=== PATIENT | male | born 1965 | race Caucasian/White ===

== ENCOUNTER 2016-12-10 20:27 | Inpatient (IN) | payer MEDICAID ==
[~2016-12-10] VITALS: Ht 177.8 cm; Wt 90.7 kg
--- NOTE | 2016-12-10 20:27 | NUR ---
Patient was BIBA at this time.
[2016-12-10 20:33] VITALS: BP 117/81
--- NOTE | 2016-12-10 20:37 | NUR ---
Patient taken to bed 06 via gurney per EMS.
--- NOTE | 2016-12-10 20:53 | NUR ---
51Y M BIBA C/O GENERAL WEAKNESS X 1 DAY; PT STATES HE HAD A STROKE EARLIER TODAY. NEURO TEST NORMAL, ALERT AND ORIENTED X 4. PT STATES TO BE AN ALCOHOLIC, AND STATES LAST DRINK WAS AT 1100 AM. ON MONITOR, VSS. NO S/S OF DISTRESS NOTED ER MD MADE AWARE. HX: BONE MARROW CANCER BS: [id number] NKA
[2016-12-10] MEDS ORDERED: THIAMINE 200 MG/2 ML VIAL IV ONE (21:15)
[2016-12-10] MEDS ORDERED: NACL 0.9% 2,000 ML IV ONE (21:15)
[2016-12-10] MEDS ORDERED: FOLIC ACID 5 MG/ML SYR ONE (21:23)
[2016-12-10] MEDS ORDERED: FOLIC ACID 5 MG/ML SYR IM ONE (21:55)
--- NOTE | 2016-12-10 22:29 | NUR ---
Patient back from CT via wheelchair per tech.
[2016-12-10] MEDS ORDERED: ASPIRIN 81 MG TAB.CHEW PO ONE (23:45)
[2016-12-11] VITALS (8 sets, daily range): BP systolic 122–152; BP diastolic 69–100
[2016-12-11] MEDS ORDERED: ACETAMINOPHEN 325 MG TAB PO PRN (00:25)
[2016-12-11] MEDS: NACL 0.9% 1,000 ML IV SCH ×4 (00:25→22:14)
[2016-12-11] MEDS ORDERED: HYDROcodone/APAP 5/325 MG 1 TAB TAB PO PRN (00:25)
[2016-12-11] MEDS ORDERED: ONDANSETRON 4 MG/2 ML VIAL IVP PRN (00:25)
[2016-12-11] MEDS ORDERED: LORazepam 2 MG/ML VIAL IVP PRN ×2 (00:40→09:40)
[2016-12-11] MEDS ORDERED: THIAMINE 200 MG/2 ML VIAL IM ONE (00:40)
--- NOTE | 2016-12-11 00:42 | NUR ---
Patient will be admitted to care of [facility]. Admited to TELEMETRY. Will go to room 111A. Belongings list completed. Report to NILSA CESAR.
[2016-12-11] MEDS ORDERED: ASPIRIN 81 MG TAB.CHEW PO ONE (00:45)
--- NOTE | 2016-12-11 00:58 | NUR ---
PT TRASFERRED TO TELEMETRY ROOM 111A, BY RN AND EMT VIA JEANETTE, NO S/S OF DISTRESS NOTED ON TRASFER.
--- NOTE | 2016-12-11 01:01 | NUR ---
RECEIVED FROM ER PER JOSEFINA . WALKED FROM OUTSIDE OF ROOM TO BED. ROM X 4. DENIES PAIN AT THIS TIME. CLEAR SPEECH. NO SOB. TELEMETRY MONITORING. PT. IS ABLE TO VERBALIZE NEEDS WELL. SMELLS ALCOHOL. DX. OF NEAR SYNCOPE, GENERAL WEAKNESS AND ETOH DEPENDENT. SKIN INTACT. IVF TO RAC#20. GOOD BLOOD RETURN. ORIENTED TO CALL LIGHT FOR HELP AND IF IN PAIN AND ORIENTED TO ROOM. BED ALARM ON .
--- NOTE | 2016-12-11 02:15 | NUR ---
RE-CHECKED PT. WITH CHARGE NURSE. NOTED WITH SMALL DRY SCABS TO LOWER EXTREMITIES. 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 PT. ABLE TO TALK MORE AT THIS TIME AND ABLE TO RE-CALL HISTORY. TELEMETRY MONITORING.
--- NOTE | 2016-12-11 02:57 | NUR ---
PROVIDED WITH SANDWICH RT STATED HE IS VERY HUNGRY. REQUESTED FOR ATIVAN RT "I FEEL JITTERY". A/O X 4.
--- NOTE | 2016-12-11 03:00 | NUR ---
CALLED ER NURSE WHO GAVE REPORT ABOUT PT. AND INFORMED HER THAT PT'S PLATELET IS HIGH AND PER PT. HE IS TAKING HYDROXYUREA. 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 WHO ADMITTED PT IN ER KNOWS ABOUT IT AND THAT HE HAS INFORMED MD IN CHARGE OF HIM . MADE CHARGE NURSE AWARE OF STATUS OF PT. BILATERAL SEQUENTIALS IN PLACE .
--- NOTE | 2016-12-11 07:50 | NUR ---
ENDORSED TO THE NEXT RN FOR CONTINUITY OF CARE. PT. AWAKE AND ALERT. NO COMPLAINTS DONE.
--- NOTE | 2016-12-11 07:51 | NUR ---
RECEIVED PT IN BED. ASLEEP, AROUSABLE TO VOICE. ALERT ORIENTEDX4. NO SOB NOTED. DENIES ANY PAIN OR DISCOMFORT AT THIS TIME. IV ON RIGHT AC NOT FLUSHING WELL SOME SWELLING NOTED. REINSERTED IV ON LEFT HAND G22, PATENT, INTACT. PT AMBULATORY. SKIN INTACT. DENIES ANY PAIN ON BOWEL OR BLADDER ELIMINATION AT THIS TIME. CONNECTED PT TO SCD. SAFETY PRECAUTION IN PLACE. CALL LIGHT WITHIN REACH. DR. ADAME WAS MAKING ROUNDS MADE AWARE OF PLATELET LEVEL OF 1267.
[2016-12-11] MEDS: FOLIC ACID 1 MG TAB PO SCH (08:56)
[2016-12-11] MEDS: DOCUSATE SODIUM 100 MG GELCAP PO SCH (08:56)
[2016-12-11] MEDS: MULTIVITAMIN 1 TAB PO SCH (08:56)
[2016-12-11] MEDS: THIAMINE 100 MG TAB PO SCH (08:56)
[2016-12-11] MEDS ORDERED: FOLIC ACID 1 MG TAB PO SCH (09:00)
[2016-12-11] MEDS ORDERED: ECOTRIN 81 MG TABEC PO SCH (09:00)
--- NOTE | 2016-12-11 09:44 | NUR ---
PATIENT HAS BEEN SCREENED AND CATEGORIZED MODERATE NUTRITION RISK. PATIENT WILL BE SEEN WITHIN 3-5 DAYS OF ADMISSION. 12/13/16-12/15/[address]
[2016-12-11] MEDS ORDERED: MAGNESIUM OXIDE 400 MG TAB PO SCH (09:48)
[2016-12-11] MEDS ORDERED: LORazepam 1 MG TAB PO SCH (09:54)
[2016-12-11] MEDS ORDERED: HYDROXYUREA 500 MG CAP PO SCH ×2 (10:25→10:52)
[2016-12-11] MEDS: LORazepam 1 MG TAB PO SCH ×2 (13:00→17:42)
--- NOTE | 2016-12-11 13:00 | NUR ---
RECEIVED A CALL FROM THE PHARMACY NAMED [facility]. SHE SAID THAT THE DRUG RECON WASN'T DONE. WENT TO PT. AND ASKED PT FOR THE MEDS HE TAKES AT HOME. OBTAINED LIST. BROUGHT TO DR. BO, AND MADE ORDERS AND CARRIED OUT.
[2016-12-11] MEDS ORDERED: MAG SULF 2000 MG/WATER PREMIX 50 ML IV ONE (14:15)
[2016-12-11] MEDS ORDERED: NICOTINE TRANSD SYS 21 MG/24 HR PATCH TD SCH (14:27)
--- NOTE | 2016-12-11 14:45 | NUR ---
faxed review to [facility] AT [phone] PHONE NUMBER [facility] [phone]
[2016-12-11] MEDS ORDERED: LISINOPRIL 5 MG TAB PO SCH (17:00)
--- NOTE | 2016-12-11 17:00 | NUR ---
[facility] SPOKE WITH DORIS RAZO MD REQUEST FOR MEDICAL RECORD OF PT FROM 08/2016 TO 09/2016 TO [facility]. ASKED FOR THEIR FAX NO. [phone]. FILLED OUT DISCLOSURE OF HEALTH INFORMATION FORM WITH PT. EXPLAINED TO PT THE PURPOSE OF THE FORM AND HIS PRIVACY RIGHTS. PT VERBALIZED UNDERSTANDING. AND PT SIGNED THE CONSENT.
--- NOTE | 2016-12-11 17:42 | NUR ---
DUE ORDERED ATIVAN 1MG NOT GIVEN AT THIS TIME DUE TO CAUSING PT TO BE SUPER SLEEPY. AWAKEN PT. ALERT ORIENTEDX4. NO NOTED SHAKINESS NOTED AT THIS TIME. DINNER SERVED. REMINDED PT THAT HE HAS AN ORDER FOR ATIVAN PRN IF HE WILL NEED IT FOR LATER. KEPT CLEAN, DRY AND COMFORTABLE.
--- NOTE | 2016-12-11 18:04 | NUR ---
FAXED REQUEST FOR MED RECORDS TO [facility] FAX NUMBER [phone]. CONFIRMATION PAPER RECEIVED AND FILED TOGETHER WITH ORIGINAL COPY TO CHART. GAVE COPY TO PT.
--- NOTE | 2016-12-11 19:34 | NUR ---
PT KEPT CLEAN, DRY AND COMFORTABLE, NEEDS ATTENDED, ENDORSED TO NEXT SHIFT FOR CONTINUITY OF CARE.
--- NOTE | 2016-12-11 19:35 | NUR ---
RECEIVED FROM AM RN IN BED SLEEPING. WAKES UP EASILY WHEN TOUCHED. NO COMPLAINTS OF PAIN AT THIS TIME. PT. ABLE TO VERBALIZE SIMPLE NEEDS. TELEMETRY MONITORING. DENIES PAIN AT THIS TIME. CARE PLANS FOR THE NIGHT DISCUSSED WITH HIM. ENCOURAGED TO USE CALL LIGHT FOR ANY NEEDS HE MAY HAVE AND IF IN PAIN. BED ALARM ON. PT. A/O X 4. ROM X 4. AFEBRILE. ROOM AIR AND 02 SAT IS 97%.
[2016-12-11] MEDS ORDERED: SIMVASTATIN 10 MG TAB PO SCH (21:00)
[2016-12-11] MEDS: ATORVASTATIN 80 MG TAB PO SCH (22:08)
[2016-12-11] MEDS: COLCHICINE 0.6 MG TAB PO SCH (22:09)
--- NOTE | 2016-12-11 22:16 | NUR ---
PT. SLEEPING AT THIS TIME. WOKE UP EASILY WHEN MEDICATED WITH P.O. MEDICATIONS FOR 2100. DENIES PAIN AT THIS TIME.CALL LIGHT WITH IN REACH. USES IT FOR HELP OR ANY NEEDS. VERBALIZES WELL.
--- NOTE | 2016-12-12 | NUR ---
RECEIVED PT IN STABLE CONDITION FROM [facility] FOR CONTINUITY OF CARE. AWAKE,ALERT AND ORIENTED X4. WITH NO C/O ANY DISCOMFORT NOR PAIN NOTED. CALL LIGHT PLACED WITH EASY REACH. INSTRUCTED TO CALL IF NEED ASSISTANCE. WILL CONTINUE TO MONITOR.
--- NOTE | 2016-12-12 | NUR ---
ENDORSED TO ANOTHER RN FOR CONTINUITY OF CARE. SLEEPING. AROUSABLE. NO COMPLAINTS AT THIS TIME. TELEMETRY MONITORING.
[2016-12-12 00:06] VITALS: BP 117/80
[2016-12-12] MEDS: LORazepam 1 MG TAB PO SCH ×4 (00:10→17:37)
--- NOTE | 2016-12-12 02:00 | NUR ---
SLEEPING AT THIS TIME. NO S/S OF ANY PAIN NOTED.
[2016-12-12 04:35] VITALS: BP 111/75
[2016-12-12] MEDS: NACL 0.9% 1,000 ML IV SCH ×3 (07:13→23:36)
--- NOTE | 2016-12-12 07:20 | NUR ---
RECEIVED REPORT FROM NIGHT NURSE, PT IS AAOX4, ON ROOM AIR, IV TO LEFT HAND INFUSING WELL, SKIN INTACT, INITIAL ASSESSMENT COMPLETED, REVIEWED PLAN OF CARE WITH PT, PT VERBALIZED UNDERSTANDING, ALL SAFETY/FALL PRECAUTIONS MET. CALL LIGHT WITHIN REACH, WILL CONTINUE TO MONITOR.
--- NOTE | 2016-12-12 07:20 | NUR ---
ENDORSED PT IN STABLE CONDITION TO AM NURSE.
[2016-12-12 08:00] VITALS: BP 118/77
[2016-12-12] MEDS: LISINOPRIL 5 MG TAB PO SCH (09:00)
[2016-12-12] MEDS ORDERED: HYDROXYUREA 500 MG CAP PO SCH (09:00)
[2016-12-12] MEDS: THIAMINE 100 MG TAB PO SCH (09:54)
[2016-12-12] MEDS: FOLIC ACID 1 MG TAB PO SCH (09:54)
[2016-12-12] MEDS: MULTIVITAMIN 1 TAB PO SCH (09:54)
[2016-12-12] MEDS: ASPIRIN 325 MG TABEC PO SCH (09:54)
[2016-12-12] MEDS: DOCUSATE SODIUM 100 MG GELCAP PO SCH (09:55)
[2016-12-12] MEDS: COLCHICINE 0.6 MG TAB PO SCH ×2 (09:55→21:11)
[2016-12-12] MEDS: HYDROXYUREA 500 MG CAP PO SCH (09:55)
[2016-12-12] MEDS: NICOTINE TRANSD SYS 21 MG/24 HR PATCH TD SCH (09:55)
--- NOTE | 2016-12-12 09:56 | NUR ---
DUE MEDICATIONS GIVEN, PT TOLERATED WELL, PT CURRENTLY AWAKE WATCHING TV, ALL NEEDS MET, CALL LIGHT WITHIN REACH. WILL CONTINUE TO MONITOR.
--- NOTE | 2016-12-12 11:35 | NUR ---
DUE MEDICATIONS GIVEN. PT CURRENTLY RESTING IN BED, NO S/S OF DISTRESS NOTED. ALL NEEDS MET. CALL LIGHT WITHIN REACH. WILL CONTINUE TO MONITOR.
[2016-12-12 11:55] VITALS: BP 113/75
--- NOTE | 2016-12-12 13:45 | NUR ---
CHECKED IN ON PT. PT CURRENTLY RESTING IN BED ALL NIGHT MET. CALL LIGHT WITHIN REACH. WILL CONTINUE TO MONITOR.
--- NOTE | 2016-12-12 15:48 | NUR ---
FAXED CONCURRENT REVIEW TO [facility] [phone] PHONE TAM [phone] OP2
[2016-12-12 16:00] VITALS: BP 118/74
--- NOTE | 2016-12-12 16:05 | NUR ---
CHECKED IN ON PT, ALL NEEDS ,ET. CALL LIGHT WITHIN REACH. WILL CONTINUE TO MONITOR.
[2016-12-12] MEDS ORDERED: MAG SULF 2000 MG/WATER PREMIX 50 ML IV SCH (16:30)
--- NOTE | 2016-12-12 17:41 | NUR ---
DUE MEDICATIONS GIVEN, PT CURRENTLY EATING DINNER, NO S/S OF DISTRESS OR DISCOMFORT NOTED. ALL NEEDS MET. CALL LIGHT WITHIN REACH. WILL CONTINUE TO MONITOR.
--- NOTE | 2016-12-12 19:30 | NUR ---
RECEIVED REPORT FROM DAY RN AT BEDSIDE, PATIENT IS AAOX4 ON ROOM AIR, NO SOB OR SIGN OF DISTRESS AT THIS TIME, IV PATENT AND INTACT. SKIN INTACT. DENIES PAIN AT THIS TIME. DISCUSSED PLAN OF CARE WITH PATIENT, PATIENT VERBALIZED UNDERSTANDING, SAFETY MEASURES CHECKED, CALL LIGHT WITHIN REACH. WILL CONTINUE TO MONITOR.
--- NOTE | 2016-12-12 19:31 | NUR ---
ENDORSED PLAN OF CARE TO NIGHT NURSE, PT IN STABLE CONDITION.
[2016-12-12 20:00] VITALS: BP 111/71
[2016-12-12] MEDS: ATORVASTATIN 80 MG TAB PO SCH (21:12)
--- NOTE | 2016-12-12 21:14 | NUR ---
PM MEDS ADMINISTERED, PATIENT TOLERATED WELL, CALL LIGHT WITHIN REACH. WILL CONTINUE TO MONITOR
[2016-12-13] VITALS: BP 138/82
--- NOTE | 2016-12-13 | NUR ---
VITAL SIGNS STABLE, NO SOB OR SIGN OF DISTRESS AT THIS TIME, CALL LIGHT WITHIN REACH. WILL CONTINUE TO MONITOR.
[2016-12-13] MEDS: LORazepam 1 MG TAB PO SCH ×3 (00:12→13:41)
--- NOTE | 2016-12-13 02:21 | NUR ---
PATIENT SLEEPING, NO SOB OR SIGN OF DISTRESS AT THIS TIME, CALL LIGHT WITHIN REACH. WILL CONTINUE TO MONITOR.
[2016-12-13 04:00] VITALS: BP 123/74
--- NOTE | 2016-12-13 04:30 | NUR ---
VITAL SIGNS STABLE, NO SOB OR SIGN OF DISTRESS AT THIS TIME, CALL LIGHT WITHIN REACH. WILL CONTINUE TO MONITOR
[2016-12-13] MEDS: NACL 0.9% 1,000 ML IV SCH (06:20)
--- NOTE | 2016-12-13 07:37 | NUR ---
ENDORSED PATIENT TO DAY RN AT BEDSIDE, PATIENT IN STABLE CONDITION
[2016-12-13 08:00] VITALS: BP 131/88
[2016-12-13] MEDS: ASPIRIN 325 MG TABEC PO SCH (09:00)
[2016-12-13] MEDS: DOCUSATE SODIUM 100 MG GELCAP PO SCH (09:15)
[2016-12-13] MEDS: COLCHICINE 0.6 MG TAB PO SCH (09:15)
[2016-12-13] MEDS: FOLIC ACID 1 MG TAB PO SCH (09:16)
[2016-12-13] MEDS: THIAMINE 100 MG TAB PO SCH (09:16)
[2016-12-13] MEDS: MULTIVITAMIN 1 TAB PO SCH (09:16)
[2016-12-13] MEDS: HYDROXYUREA 500 MG CAP PO SCH (09:16)
[2016-12-13] MEDS: NICOTINE TRANSD SYS 21 MG/24 HR PATCH TD SCH (09:17)
[2016-12-13] MEDS: LISINOPRIL 5 MG TAB PO SCH (09:17)
--- NOTE | 2016-12-13 09:18 | NUR ---
DUE MED ASPIRIN NOT GIVEN DUE TO PT WILL HAVE NEEDLE BIOPSY AT 1000. RISK FOR BLEEDING.
--- NOTE | 2016-12-13 09:30 | NUR ---
PT SIGNED INFORMED CONSENT FOR LEFT THYROID BIOPSY. PT ALERT ORIENTEDX4. VERBALIZED UNDERSTANDING OF PROCEDURE. MADE AWARE OF SCHEDULE AT 1000.
--- NOTE | 2016-12-13 10:00 | NUR ---
JONAH FROM RADIOLOGY CAME TO SEE PT. TIME OFF DONE WITH RN, AND TECH. us GUIDED LEFT THYROID BIOPSY PROCEDURE DONE. PT ON STABLE CONDITION.. NO SOB. DENIES ANY PAIN OR DISCOMFORT AT THIS TIME.
--- NOTE | 2016-12-13 10:46 | NUR ---
RECEIVED PT IN BED. AWAKE, ALERT ORIENTEDX4. NO SOB NOTED. DENIES ANY PAIN OR DISCOMFORT AT THIS TIME. POSITIVE BOWEL SOUNDS NOTED ON FOUR QUADRANTS. PT AMBULATORY. SAFETY PRECAUTION IN PLACE CALL LIGHT WITHIN REACH. Addendum: 12/13/16 at 1108 by Erin Galaviz RN TIME MAYE PT IS [id number]
--- NOTE | 2016-12-13 10:52 | NUR ---
US GUIDED LEFT THYROID BIOPSY DONE. PT DENIES ANY PAIN OR DISCOMFORT AT THIS TIME. DRESSING ON LEFT LATERAL NECK AREA DRY AND INTACT. NO SOB NOTED.
[2016-12-13 12:00] VITALS: BP 128/75
[2016-12-13] MEDS ORDERED: NATURE'S BLEND F1 M1 PO (12:25)
[2016-12-13] MEDS ORDERED: LISINOPRIL5 M1 PO (12:25)
[2016-12-13] MEDS ORDERED: HYDREA500 M1 PO (12:25)
[2016-12-13] MEDS ORDERED: NATURE'S BLEND100 M2 PO (12:25)
[2016-12-13] MEDS ORDERED: LIPITOR80 MG PO (12:25)
[2016-12-13] MEDS ORDERED: TAB-A-VITE1 TA3 PO (12:25)
[2016-12-13] MEDS ORDERED: [UNRECOGNIZED DRUG - OTHER] TD (12:25)
[2016-12-13] MEDS ORDERED: ASPIRIN EC325 M1 PO (12:25)
[2016-12-13] MEDS ORDERED: COLCHICINE0.6 M3 PO (12:25)
--- NOTE | 2016-12-13 13:00 | NUR ---
DISCHARGE ORDERS MADE AND CARRIED OUT. HEALTH TEACHINGS GIVEN, DISCHARGE INSTRUCTIONS GIVEN. PT VERBALIZED UNDERSTANDING. PT IV CANNULA REMOVED AND INTACT. OFF TELE BOX. BUS PASS GIVEN PER PT REQUEST.DISCHARGE PAPERS SIGNED BY PT.
--- NOTE | 2016-12-13 14:24 | NUR ---
PT TOOK A SHOWER. NAME [facility]AND REMOVED.
--- NOTE | 2016-12-13 14:40 | NUR ---
PT WHEELED OUT OF HOSPITAL PER RN. PT ON STABLE CONDITION. DENIES ANY PAIN OR DISCOMFORT. NO SOB NOTED. PT AMBULATORY. NEEDS ATTENDED. BUS PASS PROVIDED. PT WENT HOME BY HIMSELF.
--- NOTE | 2016-12-13 15:17 | NUR ---
1345 MET WITH PT AT BEDSIDE AND DISCUSSED DISCHARGE. PT STATED THAT HE PLANS ON GOING BACK TO THE [facility] WHERE HE USUALLY HANGS OUT. PT IS CURRENTLY HOMELESS BUT STATED THAT HE UTILIZES FOOD LARES, ORIENTAL ORTHODOX SUPPORT AND OTHER RESOURCES IN THE [facility]. PT STATED THAT HE PLANS ON TAKING THE [employer] LINK TO RETURN TO [place] AND THAT HE DOES HAVE MONEY AT THIS TIME TO PAY FOR THE TRAIN. 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
== END 2016-12-13 14:40 | disposition home or self-care (01) | DRG 775 ==
LOC: MED 20:27 → MTU 12-11 00:20
PROVIDERS: ADMIT Student in an Organized Health Care Education/Training Program; ATTEND Student in an Organized Health Care Education/Training Program
PROC: 0GBG3ZX Excision of Left Thyroid Gland Lobe, Percutaneous Approach, Diagnostic (ICD-10-PCS; principal; 2016-12-13)
DX: F10.231 Alcohol dependence with withdrawal delirium (principal); G92 Toxic encephalopathy; I42.9 Cardiomyopathy, unspecified; E87.8 Other disorders of electrolyte and fluid balance, not elsewhere classified; D47.1 Chronic myeloproliferative disease; E83.42 Hypomagnesemia; S09.90XA Unspecified injury of head, initial encounter; G90.8 Other disorders of autonomic nervous system; D47.3 Essential (hemorrhagic) thrombocythemia; S80.812A Abrasion, left lower leg, initial encounter; K40.90 Unilateral inguinal hernia, without obstruction or gangrene, not specified as recurrent; E04.1 Nontoxic single thyroid nodule; F17.220 Nicotine dependence, chewing tobacco, uncomplicated; Y90.8 Blood alcohol level of 240 mg/100 ml or more; W18.39XA Other fall on same level, initial encounter; Z59.0 Homelessness; Z79.82 Long term (current) use of aspirin; Z71.6 Tobacco abuse counseling; Z89.421 Acquired absence of other right toe(s); Y93.89 Activity, other specified; Y99.8 Other external cause status; Y92.89 Other specified places as the place of occurrence of the external cause